=== PATIENT | male | born 1955 | race Caucasian/White ===

== ENCOUNTER 2016-08-24 06:32 | Day surgery (SDC) | payer BC ==
[~2016-08-24 06:32] MED LIST: ASPIR 8181 MG PO; ASPIR-LOW81 MG PO; BISOPROLOL; BISOPROLOL FUMA10 MG PO; COREG6.25 M1 PO; EFFIENT10 MG/TAB PO; FISH OIL 1,2001 CAP PO; LIPITOR20 MG PO; LIPITOR40 M1 PO; LISINOPRIL10 MG PO; NIASPAN500 MG PO; PEPCID40 MG PO; PROBENECID PO; PROBENECID500 M1 PO; TRICOR145 M1 PO; TRICOR145 MG PO; ZESTRIL2.5 M1 PO; ZETIA; ZETIA10 MG PO
[2016-08-24] MEDS ORDERED: COREG6.25 M1 PO (06:47)
[2016-08-24 07:00] LABS: BASO % 0.7 % (0-2); BASO ABSOLUTE COUNT 0.1 tho/cmm (0.0-0.2); EOS % 3.7 % (0-7); EOSINOPHIL ABSOLUTE COUNT 0.3 tho/cmm (0.0-0.7); HCT-HEMATOCRIT 51.6 % (36.0-53.5); HGB-HEMOGLOBIN 18.4 gm/dl (13.5-17.0); IMMATURE GRANULOCYTES ABSOLUTE 0.02 tho/cmm (0-0.03); IMMATURE GRANULOCYTES PERCENT 0.3 % (0-0.3); LYMPH % 39.4 % (20-45); LYMPH ABSOLUTE COUNT 2.9 tho/cmm (0.8-4.5); MCH (MEAN CORPUSCULAR HGB) 31.8 pg (28.0-32.0); MCHC MEAN CORPUSCULAR HGB CONC 35.7 % (32.0-36.0); MCV (MEAN CELL VOLUME) 89.3 fl (82.0-96.0); MEAN PLATELET VOLUME 10.4 cmc (9.4-12.4); MONO % 6.4 % (0-12); MONOCYTE ABSOLUTE COUNT 0.5 tho/cmm (0.0-1.2); NEUTROPHIL ABSOLUTE COUNT 3.6 tho/cmm (1.6-8.0); NEUTROPHIL-AUTOMATED 3.6 tho/cmm (1.6-8.0); NEUTROPHILS % 49.5 % (40-80); PLATELET COUNT 163 tho/cmm (150-450); RED BLOOD COUNT 5.78 mil/cmm (4.40-5.70); RED CELL DISTRIBUTION WIDTH 12.6 % (12.4-16.4); WHITE BLOOD COUNT 7.2 tho/cmm (4.0-10.0)
[2016-08-24 07:23] LABS: ANION GAP 10 mmol/L (0-20); BLOOD UREA NITROGEN 14 mg/dl (6-24); CALCIUM 8.9 mg/dl (8.5-10.5); CARBON DIOXIDE-VENOUS 24 mmol/L (22-32); CHLORIDE 109 mmol/l (96-110); CREATININE 0.87 mg/dl (0.60-1.30); GLUCOSE 113 mg/dL (70-110); POTASSIUM 3.9 mmol/L (3.7-5.1); SODIUM 139 mmol/L (135-145); eGFR VALUE FOR BLACK >90 mL/Min
[2016-08-24 14:30] LABS: URINE BILIRUBIN NEGATIVE (NEG); URINE BLOOD NEGATIVE (NEG); URINE GLUCOSE (UA) NEGATIVE (NEG); URINE KETONE NEGATIVE (NEG); URINE LEUKOCYTE ESTERASE NEGATIVE (NEG); URINE NITRITE NEGATIVE (NEG); URINE PH 6.5 (5.0-8.0); URINE PROTEIN NEGATIVE (NEG)
[2016-08-24 14:31] LABS: CKMB 1.6 ng/ml (<3.6)
[2016-08-24 14:32] LABS: URINE APPEARANCE CLEAR; URINE COLOR PALE YELLOW
[2016-08-25 06:03] LABS: BLOOD UREA NITROGEN 8 mg/dl (6-24); CHOLESTEROL 114 mg/dl (120-200); CREATININE 0.77 mg/dl (0.60-1.30); HDL CHOLESTEROL 36 mg/dl (40-60); LDL CHOLESTEROL 46 mg/dl (0-99); VLDL 32 mg/dl (0-30); eGFR VALUE FOR BLACK >90 mL/Min
[2016-08-25 06:11] LABS: TRIGLYCERIDES 161 mg/dl (<149)
[2016-08-25] MEDS ORDERED: PLAVIX75 M1 PO (10:35)
[2016-08-25] MEDS ORDERED: ISOSORBIDE MONO30 M4 PO (10:36)
[2016-08-25] MEDS ORDERED: NITROSTAT0.4 M1 SL (10:39)
== END 2016-08-25 13:10 ==
LOC: EDMED 06:32 → SRG 07:43 → PCUB 09:45
PROVIDERS: Emergency Medicine; Internal Medicine Interventional Cardiology
PROC: 027034Z Dilation of Coronary Artery, One Artery with Drug-eluting Intraluminal Device, Percutaneous Approach (ICD-10-PCS; principal; 2016-08-24)
PROC: 4A023N7 Measurement of Cardiac Sampling and Pressure, Left Heart, Percutaneous Approach (ICD-10-PCS; 2016-08-24)
DX: I25.10 Atherosclerotic heart disease of native coronary artery without angina pectoris (principal); I25.2 Old myocardial infarction; I25.5 Ischemic cardiomyopathy; I10 Essential (primary) hypertension; E78.5 Hyperlipidemia, unspecified; Z79.82 Long term (current) use of aspirin; Z79.899 Other long term (current) drug therapy; Z87.891 Personal history of nicotine dependence; Z90.89 Acquired absence of other organs; Z98.890 Other specified postprocedural states
CPT/HCPCS: C1725; C1760; C1769; C1887; C1894; J1644; J2250; J3010; J7030; Q9967